=== PATIENT | female | born 1935 | race Caucasian/White ===

== ENCOUNTER → 2016-10-19 | Outpatient (CLI) | payer OTHER, MEDICARE ==
[~2016-10-19] MED LIST: NORCO 5-325 TA1 EACH PO
== END ==
LOC: RAD 03:06
DX: Z12.31 Encounter for screening mammogram for malignant neoplasm of breast (principal); N63 Unspecified lump in breast

== ENCOUNTER → 2017-11-08 | Outpatient (CLI) | payer OTHER, MEDICARE | LOC: RAD 00:55 | DX: Z12.31 Encounter for screening mammogram for malignant neoplasm of breast (principal); N60.02 Solitary cyst of left breast; N60.01 Solitary cyst of right breast ==

== ENCOUNTER 2018-05-02 05:58 | Day surgery (SDC) | payer OTHER, MEDICARE ==
[~2018-05-02] VITALS: Ht 167.6 cm; Wt 62.1 kg
--- NOTE | ~2018-05-02 | EKG ---
[place] [address] [facility] [place] [address] ELECTROCARDIOGRAM REPORT Name: RUSSELL LERMA Room #: [facility]#: [id number] Admission: 05/02/18 Attend Phys: Discharge: 05/02/18 Date of : 37 Report #: [id number] THIS REPORT FOR: //name// [facility] ED Test Date: 2018-05-02 Test Time: 07:46:58 Pat Name: RUSSELL LERMA Department: Room: Gender: F Car Cooper: hipolito : 1935 Requested By: Segun Qureshi Order Number: [id number] MD: Corky Hackett Measurements Intervals [place] Rate: 73 P: 74 [place]: 155 QRS: -15 QRSD: 123 T: 30 QT: 416 QTc: 459 Interpretive Statements Sinus rhythm Poor R-wave progression Baseline wander in lead(s) II,III,aVF Before meals noise noted No previous ECG available for comparison Electronically Signed On 05-02-2018 12:07:54 CERTIFIED ETHICAL HACKER by Corky Hackett [email or web address] <ELECTRONICALLY SIGNED> By: Corky Hackett MD 05/02/18 1207 Corky Hackett MD /EPI
--- NOTE | ~2018-05-02 | H ---
[facility] [place] [address] HISTORY AND PHYSICAL Name: RUSSELL LERMA Room #: 150-1 [facility]#: [id number] Admission: 05/02/18 Attend Phys: Bradly Siddiqui MD Discharge: Date of : 37 Report #: [id number] THIS REPORT FOR: //name// CC: FAM unknown Segun Qureshi DATE OF SERVICE: 05/02/2018 CHIEF COMPLAINT: Left distal radius fracture. HISTORY OF PRESENT ILLNESS: This 83-year-old female is generally healthy, fit, active and independent. She fell earlier this morning, injuring the left wrist. She bumped her head, but had no loss of consciousness. She was evaluated at [facility]. She seemed to have no significant head injury. X-rays of the left wrist confirmed a comminuted displaced and unstable distal radius fracture. No other fractures were identified. She is admitted for surgical repair. At the time of my evaluation, she is alert and oriented and accompanied by her . They state that she is generally healthy and only takes bkyh-ugt-vchdfon medication. She does have a history of osteoporosis. She has no history of heart problems and has had no previous fractures or significant previous surgeries. She complains of deformity and pain involving the left wrist, but has no other significant subjective complaints at this time. PHYSICAL EXAMINATION: GENERAL: Objectively, she appears to be alert, oriented and generally healthy. LUNGS: Clear. CARDIAC EXAMINATION: Reveals a regular rate and rhythm, without murmurs. MUSCULOSKELETAL: The neck and back reveal normal contour and alignment and satisfactory range of motion EXTREMITIES: The right upper extremity demonstrates good movement, without discomfort. She has good movement of both hips, without joint pain. The knees and lower extremities also appear to be normal. The left upper extremity reveals pain and deformity at the left wrist, consistent with an unstable distal radius fracture. The skin is intact. NEUROLOGIC: Neurologic status is intact. DIAGNOSTIC DATA: X-rays of the left wrist reveal a comminuted, impacted and shortened fracture of the left distal radius. No other abnormalities were identified. IMPRESSION AND PLAN: Left distal radius fracture with displacement. I have discussed this at some length with the patient and her , reviewing treatment options. They prefer to go ahead with surgical repair. Given the scheduling difficulties with the upcoming holidays and a very busy OR schedule, [address] [place] [address] HISTORY AND PHYSICAL Name: RUSSELL LERMA Room #: 150-1 [facility] [place]#: [id number] Admission: 05/02/18 Attend Phys: Bradly Siddiqui MD Discharge: Date of : 36 Report #: [id number] I have noted that there is OR time today and I think the best option may be simply to proceed. She seems to be stable and has been cleared by Anesthesia. Therefore, we will go ahead with plans for surgical repair of the left distal radius fracture today. I would anticipate this could be accomplished as an outpatient with rest, elevation and splint protection for the next 2 weeks, followed by office visit at that time. <ELECTRONICALLY SIGNED> By: Bradly Siddiqui MD 05/03/18 1632 1149 1220 Bradly Siddiqui MD /nt
--- NOTE | ~2018-05-02 | O ---
[facility] [place] [address] [place] [address] OPERATIVE REPORT Name: RUSSELL LERMA Room #: 150-1 [facility]#: [id number] Admission: 05/02/18 Attend Phys: Bradly Siddiqui MD Discharge: Date of : 36 Report #: [id number] THIS REPORT FOR: //name// CC: Bradly Siddiqui [facility] physician/PCP DATE OF SERVICE: 05/02/2018 PREOPERATIVE DIAGNOSIS: Left distal radius fracture. POSTOPERATIVE DIAGNOSIS: Left distal radius fracture. PROCEDURE: Open reduction and internal fixation of left distal radius fracture. SURGEON: Bradly Siddiqui MD INDICATIONS: This active, independent 83-year-old female fell earlier today, injuring the left wrist. X-rays confirm a badly comminuted and displaced fracture of the distal radius. We discussed treatment options and elected to go ahead with surgical repair. DESCRIPTION OF PROCEDURE: The patient was taken to the operating room where she was placed under general anesthetic. Prophylactic intravenous antibiotics were administered. The left arm and hand were meticulously prepped and draped. An Esmarch bandage was used to exsanguinate the hand and left at the mid forearm as a gentle tourniquet. A volar longitudinal skin incision was made. This was carried through the fascia of the flexor carpi radialis, which was then retracted. The pronator was moderately lacerated as the fracture had displaced significantly and caused a moderate damage to the muscle. A gentle blunt dissection was applied, and the volar surface of the radius was exposed. The fracture was moderately comminuted and had displaced significantly causing some impingement on the median nerve. There seemed to be a small avulsed nerve branch extending off toward the radial side, which is probably a small sensory nerve. This was essentially completely avulsed. It did not seem large enough or in good enough shape to accommodate any sort of a repair. The rest of the median nerve seems to be intact with only mild bruising. The fracture was reduced and satisfactory alignment was established. An Acumed narrow volar locking plate was then applied and positioned under C-arm guidance. 5 screws were placed distally and 2 screws placed proximally, resulting in satisfactory stability. The position of the screws and the fracture was checked periodically with C-arm. The fracture seems to be in acceptable alignment and screw placement and fixation appeared to be acceptable. The Esmarch bandage was removed, and satisfactory hemostasis was accomplished. The wound was copiously irrigated. Closure was somewhat difficult as the nerve is quite prominent with little good soft tissue coverage. The nerve also seemed to be somewhat narrowed as it extended out into the carpal tunnel. A limited subcutaneous carpal tunnel [address] [address] OPERATIVE REPORT Name: LERMARUSSELL Room #: 150-1 [facility]..#: [id number] Admission: 05/02/18 Attend Phys: Bradly Siddiqui MD Discharge: Date of : 36 Report #: [id number] release was performed which seemed to free up the nerve in a satisfactory fashion and diminish any ongoing impingement. The very limited remaining muscle, fascia and atrophic subcutaneous tissues were then carefully reapproximated over the nerve trying to bury the nerve as deeply as possible to protect it. This brought the subcutaneous tissues back in a satisfactory fashion using 2-0 Monocryl suture. The skin was then closed with 4-0 Prolene. A sterile dressing was applied and a plaster splint placed holding the hand and wrist in neutral position. The patient was awakened and returned to recovery room in good condition. <ELECTRONICALLY SIGNED> By: Bradly Siddiqui MD 05/03/18 1633 1256 1348 Bradly Siddiqui MD /nt
[2018-05-02 09:11] LABS: ABSOLUTE NEUTROPHILS 9.6 thou/uL (1.4-8.2); BASOPHILS 0.2 % (0.0-2.0); HEMATOCRIT 39.7 % (37.0-47.0); HEMOGLOBIN 13.3 gm/dL (12.0-15.0); LYMPHOCYTES 5.8 % (24.0-44.0); MCH 33.1 pg (26.0-34.0); MCHC 33.5 g/dL (28.0-37.0); MCV 98.8 fL (80.0-100.0); MONOCYTES 5.1 % (1.0-8.0); PLATELET COUNT 230 thou/uL (150-400); POLYS 88.9 % (36.0-66.0); RBC 4.02 mil/uL (4.20-5.00); RDW 13.6 % (10.5-14.5); WBC 10.8 thou/uL (4.0-11.0)
[2018-05-02 09:23] LABS: CALCIUM 9.5 mg/dL (8.5-10.1); CREATININE 0.9 mg/dL (0.6-1.0)
[2018-05-02 13:39] VITALS: BP 110/55
== END 2018-05-02 14:30 | disposition home or self-care (01) ==
LOC: ER 05:58 → TBA 13:32 → OR 13:32 → TBA 13:33 → OR 14:30
PROVIDERS: Emergency Medicine
DX: S52.502A Unspecified fracture of the lower end of left radius, initial encounter for closed fracture (principal); M81.8 Other osteoporosis without current pathological fracture; Z98.890 Other specified postprocedural states; X58.XXXA Exposure to other specified factors, initial encounter; Y93.89 Activity, other specified; Y92.89 Other specified places as the place of occurrence of the external cause; Y99.8 Other external cause status
CPT/HCPCS: 50010; 50101; 50386; 55430; 56525; 56526; 57091; 62110; 62900; 64039; 70005

== ENCOUNTER 2019-01-13 16:55 | Emergency (ER) | payer OTHER, MEDICARE ==
[~2019-01-13] VITALS: Ht 167.6 cm; Wt 62.1 kg
[2019-01-13 18:36] LABS: URINE BILIRUBIN NEGATIVE (Negative); URINE BLOOD TRACE (Negative); URINE CLARITY CLEAR; URINE COLOR YELLOW; URINE GLUCOSE-RANDOM* NEGATIVE (Negative); URINE KETONES NEGATIVE (Negative); URINE NITRITE-REFLEX NEGATIVE (Negative); URINE PROTEIN (DIPSTICK) TRACE (Negative); URINE SPECIFIC GRAVITY >= 1.030 (1.005-1.035); URINE UROBILINOGEN 0.2 E.U./dl (0.2-1.0)
[2019-01-13 18:37] LABS: URINE LEUKOCYTES-REFLEX 1+ (Negative)
[2019-01-13 18:45] LABS: BACTERIA-REFLEX None Seen /HPF (None Seen); CASTS None Seen /LPF (None Seen); CRYSTALS None Seen /LPF (None Seen); MUCUS >6 Heavy strn/LPF (None Seen); SQUAMOUS 0-3 Few /LPF (0-3); URINE RBC 0-2 Rare /HPF (0-2); WBC CLUMPS Few (None Seen)
[2019-01-13 19:33] LABS: ABSOLUTE NEUTROPHILS 5.8 thou/uL (1.4-8.2); BASOPHILS 0.6 % (0.0-2.0); EOSINOPHILS 1.3 % (0.0-3.0); HEMATOCRIT 39.2 % (37.0-47.0); HEMOGLOBIN 13.5 gm/dL (12.0-15.0); LYMPHOCYTES 15.1 % (24.0-44.0); MCH 33.6 pg (26.0-34.0); MCHC 34.5 g/dL (28.0-37.0); MCV 97.5 fL (80.0-100.0); MONOCYTES 6.7 % (1.0-8.0); PLATELET COUNT 286 thou/uL (150-400); POLYS 76.3 % (36.0-66.0); RBC 4.02 mil/uL (4.20-5.00); RDW 13.4 % (10.5-14.5); WBC 7.7 thou/uL (4.0-11.0)
[2019-01-13 19:40] LABS: CALCIUM 9.8 mg/dL (8.5-10.1); POTASSIUM 4.2 mmol/L (3.5-5.1)
[2019-01-13 19:46] LABS: ALBUMIN 3.9 g/dL (3.4-5.0); TOTAL BILIRUBIN 0.4 mg/dL (<0.1-1.0); TOTAL PROTEIN 8.2 g/dL (6.4-8.2)
[2019-01-13] MEDS ORDERED: LIDOCAINE PAIN1 EACH TOP (20:42)
[2019-01-13] MEDS ORDERED: NORCO 5-325 TA1 EAC1 PO (20:42)
[2019-01-13] MEDS ORDERED: MACROBID 100 M100 M1 PO (20:42)
[2019-01-13 21:11] VITALS: BP 145/49
== END 2019-01-13 21:11 | disposition home or self-care (01) ==
LOC: ER 16:55
PROVIDERS: Physician Assistant
DX: N39.0 Urinary tract infection, site not specified (principal); M62.830 Muscle spasm of back

== ENCOUNTER → 2019-02-17 | Outpatient (CLI) | payer OTHER, MEDICARE ==
[~2019-02-17] VITALS: Ht 165.1 cm; Wt 59.4 kg
[~2019-02-17] MED LIST changes: +CALCIUM 600 +1 EAC1 PO; +LIDOCAINE PAIN1 EACH TOP; +MACROBID 100 M100 M1 PO; +NORCO 5-325 TA1 EAC1 PO; +VOLTAREN 50MG T50 MG PO
[2019-02-17 12:57] VITALS: BP 133/75
--- NOTE | 2019-02-17 12:58 | NUR ---
Pain Clinic Assessment: 1. History of Osteoarthritis: SPINE HIPS History of Rheumatoid Arthritis: Not Applicable 2. Height: 5 ft. 5 in. 165.1 cm. Weight: 131.0 lb. oz. 59.421 kg. Patient's BMI: 21.8 3. Vital Signs: BP: 133/75 Pulse: 74 Resp: 16 Temp: 02 Sat: 97 ECG Mon: 4. Pain Intensity: 8 5. Fall Risk: Dizziness: Needs help standing or walking: Fallen in the last 3 months: Fall risk comments: 6. Patient on Blood Thinner: None 7. History of Hypertension: N 8. Opioid Therapy greater than 6 weeks: N Opiate Contract Signed: 9. Risk Assessment Tool Provided: 0-LOW 10. Functional Assessment Tool: 59/70 11. Recreational Drug Use: Never Drug Type: Tobacco Use: Former Smoker Tobacco Type: Amount or Packs/day: How Many Years: Alcohol Use: No Frequency: Quant:
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
== END | disposition home or self-care (01) ==
LOC: PAIN 06:52 → RAD 06:52 → PAIN 12:03
DX: M48.54XA Collapsed vertebra, not elsewhere classified, thoracic region, initial encounter for fracture (principal); M79.18 Myalgia, other site; G89.29 Other chronic pain; E03.9 Hypothyroidism, unspecified; M19.90 Unspecified osteoarthritis, unspecified site; Z87.891 Personal history of nicotine dependence; Z79.899 Other long term (current) drug therapy